=== PATIENT | female | born 1985 | race Two or more races ===

== ENCOUNTER 2022-08-28 11:45 | Outpatient (RCR) | payer OTHER, SELFPAY ==
[2022-08-28 13:20] LABS: Hematocrit 35.2 % (37.0-47.0); Hemoglobin 11.8 g/dL (12.0-15.0); Mean Corpuscular HGB Conc 33.5 g/dl (32-36); Mean Corpuscular Hemoglobin 29.6 pg (26-34); Mean Corpuscular Volume 88.4 fl (80-100); Mean Platelet Volume 9.9 fl (7.4-10.4); Platelet Count Result 302 k/mm3 (150-375); Red Blood Count 3.98 M/mm3 (4.2-5.4); Red Cell Distribution Width 17.9 % (11.5-14.5); White Blood Count 8.7 K/mm3 (4.5-10.0)
[2022-08-28 13:41] LABS: Glucose 1 Hour PP 50gm Dose 95 mg/dL
[2022-08-28 14:20] LABS: HIV 1/2 Ab P24 Ag Result Negative (Negative)
[2022-08-28 14:22] LABS: Hepatitis B Surface Antigen Negative (Negative); Rubella IgG Antibody 23.3 IU/ML
[2022-08-31 15:20] LABS: Rapid Plasma Reagin Non-Reactive (NonReactive)
== END 2022-11-26 23:59 | disposition home or self-care (01) ==
LOC: ANHLAB 11:45
PROVIDERS: Visit Provider Student in an Organized Health Care Education/Training Program
DX: Z11.4 Encounter for screening for human immunodeficiency virus [HIV] (principal); Z3A.00 Weeks of gestation of pregnancy not specified
CPT/HCPCS: 36415; 82947; 84702; 85027; 85660; 86592; 86644; 86703; 86747; 86762; 86787; 86850; 86900; 86901; 87086; 87340; G0432

== ENCOUNTER 2022-10-16 11:13 | Outpatient (RCR) | payer OTHER, SELFPAY ==
[2022-10-16 11:54] VITALS: BP 115/81; PULSE 75
== END 2023-01-14 23:59 | disposition home or self-care (01) ==
LOC: ANHOBOP 11:13
PROVIDERS: Visit Provider Student in an Organized Health Care Education/Training Program
DX: O36.8120 Decreased fetal movements, second trimester, not applicable or unspecified (principal); Z3A.19 19 weeks gestation of pregnancy
CPT/HCPCS: 59025

== ENCOUNTER 2022-12-24 12:11 | Outpatient (CLI) | payer OTHER, SELFPAY ==
[2022-12-24 15:01] LABS: Basophils Percent Auto 0.4 % (0.2-1.2); Eosinophils Absolute Auto 0.1 K/mm3 (0-0.3); Eosinophils Percent Auto 0.6 % (0-4.4); Hematocrit 31.9 % (37.0-47.0); Hemoglobin 10.4 g/dL (12.0-15.0); Immature Granulocyte Absolute 0.06 K/mm3 (0.00-0.031); Immature Granulocyte Percent A 0.7 % (0-0.5); Lymphocytes Percent Auto 20.7 % (18.3-44.2); Mean Corpuscular HGB Conc 32.6 g/dl (32-36); Mean Corpuscular Hemoglobin 31.2 pg (26-34); Mean Corpuscular Volume 95.8 fl (80-100); Mean Platelet Volume 10.5 fl (7.4-10.4); Monocytes Absolute Auto 0.8 K/mm3 (0.1-0.6); Monocytes Percent Auto 10.2 % (2.6-8.5); Neutrophils Absolute Auto 5.5 K/mm3 (1.3-6.7); Neutrophils Percent Auto 67.4 % (45.5-73.1); Platelet Count Result 262 k/mm3 (150-375); Red Blood Count 3.33 M/mm3 (4.2-5.4); Red Cell Distribution Width 13.8 % (11.5-14.5); White Blood Count 8.2 K/mm3 (4.5-10.0)
[2022-12-24 15:07] LABS: Glucose 1 Hour PP 50gm Dose 95 mg/dL
[2022-12-24 15:48] LABS: HIV 1/2 Ab P24 Ag Result Negative (Negative)
== END 2022-12-24 12:12 | disposition home or self-care (01) ==
PROVIDERS: Visit Provider Obstetrics & Gynecology
DX: Z34.90 Encounter for supervision of normal pregnancy, unspecified, unspecified trimester (principal); Z3A.00 Weeks of gestation of pregnancy not specified
CPT/HCPCS: 36415; 82947; 85025; 86703; G0432

== ENCOUNTER 2023-03-05 05:30 | Inpatient (IN) | payer OTHER, SELFPAY ==
--- NOTE | 2023-03-04 13:54 | PM.IMHP ---
H&P: HPI History of Present Illness Date/Time: 03/04/23 13:54 Chief Complaint: Intrauterine at term macrosomia h/o shoulder dystocia desires permanent sterilization Narrative: 37 yo female at 39w who present for primary section for suspected macrosomia in the setting of prior shoulder dystocia resulting in cerebral palsy. Review of Systems Cardiovascular: Cardiovascular: Denies chest pain, Denies leg edema, Denies palpitations, Denies dyspnea and Denies dyspnea on exertion Respiratory: Respiratory: Denies cough, Denies dyspnea and Denies dyspnea on exertion Gastrointestinal: Gastrointestinal: Denies abdominal pain, Denies constipation, Denies diarrhea, Denies nausea and Denies vomiting Genitourinary: Genitourinary: Denies hematuria, Denies urinary frequency, Denies dysuria, Denies pelvic pain, Denies urinary incontinence and Denies vaginal discharge Neurologic: Reports system reviewed and no additional complaints, except as documented Psychiatric: Psychiatric: Reports no additional psychiatric complaints Endocrine: Endocrine: Denies palpitations PMFSH Past Medical History Medical History HSV-2 infection Hypertension Vaginal discharge Family History Family History Father Diabetes mellitus Malignant neoplasm of prostate Sibling Diabetes mellitus Grandparent Malignant neoplasm of prostate Breast cancer Heart disease Other Hypertension Social History Social History Smoking status: Current some day smoker Tobacco type: cigarettes and e-cigarettes/vaping Alcohol intake: former Substance use: never Substance use type: marijuana Lack of Transportation: YES Lack of Food: Sometimes True Current Housing: I Have Housing Concerned About Future Housing: YES Difficulty Paying Gas/Electric Bills: YES Difficulty Paying for Meds: No Currently Unemployed: YES Education: Trade/Vocational Certificate Difficulty w/ Childcare or Family Care: No Living arrangements: with family Occupation/Education: occupation Gender identity (if verbalized by the patient): Female Sexual Orientation (if Verbalized by the Patient): Straight or Heterosexual Spiritual care concerns: No Meds Home Medications and Allergies Home Medications Medication Instructions Recorded Confirmed Type vits no.126-ferrous fum 1 tablet PO DAILY 11/03/22 03/02/23 History 28 mg iron-folic acid 800 mcg tablet (Classic ) aspirin 81 mg tablet,delayed 81 mg PO DAILY 12/01/22 03/02/23 History release (Adult Low Dose Aspirin) ferrous sulfate 325 mg (65 mg 325 mg PO DAILY 12/29/22 03/02/23 History iron) tablet metronidazole 500 mg tablet 500 mg PO Q12H #14 tabs 02/19/23 03/02/23 Rx Allergies Allergy/AdvReac Type Severity Reaction Status Date / Time No Known Allergies Allergy Verified 03/02/23 09:11 Exam Const: General: no acute distress Eyes: EOM: EOMs intact bilaterally Neck: Neck: supple Thyroid: thyroid normal Chest: Breast/axilla inspection: normal inspection of the breasts Breast/axilla palpation: normal palpation of the breasts, normal palpation of the axillae and no axillary lymphadenopathy Resp: Effort & Inspection: normal respiratory effort Auscultation: clear to auscultation bilaterally Cardio: Rate: regular rate Rhythm: regular rhythm GI: Inspection: non-distended and other (Gravid) GI Palp: Yes Soft to palpation, No Tenderness to palpation present (GI) and No Guarding due to palpation present (GI) Auscultation: normal bowel sounds : Speculum Exam - Vagina: No vaginal bleeding OB/external & speculum: external exam normal; No vaginal bleeding Skin: General skin exam: normal color and no rashes or lesions noted Neuro: Cognition (Neuro): normal cognition Sp
[2023-03-05] VITALS (60 sets, daily range): BP systolic 85–179; BP diastolic 56–117; PULSE 80–273; RESP 14–21; TEMP 36.8–37; O2SAT 96–100; BMI 39.2
--- NOTE | 2023-03-05 06:24 | LDADM ---
This patient, Lorrie Rawls, was admitted to Labor/Delivery/Recovery 120 on 03/05/23 at 05:30. Plans for labor, pain management and were discussed with patient. Patient/family oriented to hospital policies and general routines including ID bracelet, bed and alarms, visiting hours, pain management, procedures, bathroom and other care routines, personal items, smoking policy, room service/diet and guest tray routines, infant security routines, and visiting hours. Patient/Family are encouraged to report perceived risks to care and to ask questions if they do not understand what they are told or what they should do. See OBIX for further documentation.
[2023-03-05 06:34] LABS: Basophils Percent Auto 0.3 % (0.2-1.2); Eosinophils Absolute Auto 0.1 K/mm3 (0-0.3); Eosinophils Percent Auto 0.9 % (0-4.4); Hemoglobin 10.1 g/dL (12.0-15.0); Immature Granulocyte Absolute 0.07 K/mm3 (0.00-0.031); Immature Granulocyte Percent A 0.8 % (0-0.5); Lymphocytes Absolute Auto 2.36 K/mm3 (0.9-3.2); Lymphocytes Percent Auto 25.9 % (18.3-44.2); Mean Corpuscular HGB Conc 32.6 g/dl (32-36); Mean Corpuscular Hemoglobin 30.1 pg (26-34); Mean Corpuscular Volume 92.5 fl (80-100); Mean Platelet Volume 10.6 fl (7.4-10.4); Monocytes Absolute Auto 1.3 K/mm3 (0.1-0.6); Monocytes Percent Auto 13.9 % (2.6-8.5); Neutrophils Absolute Auto 5.3 K/mm3 (1.3-6.7); Neutrophils Percent Auto 58.2 % (45.5-73.1); Platelet Count Result 290 k/mm3 (150-375); Red Blood Count 3.35 M/mm3 (4.2-5.4); White Blood Count 9.1 K/mm3 (4.5-10.0)
[2023-03-05 06:44] LABS: Alanine Aminotransferase 16 U/L (6-35); Albumin Level 3.5 g/dL (3.5-5.1); Alkaline Phosphatase 128 U/L (38-126); Anion Gap 6 mmol/L (8-16); Aspartate Amino Transferase 23 U/L (14-36); Bilirubin,Total 0.6 mg/dL (0.2-1.3); Blood Urea Nitrogen 10 mg/dL (7-17); Calcium 9.1 mg/dL (8.4-10.2); Carbon Dioxide 21 mmol/L (22-30); Chloride 106 mmol/L (98-107); Estimated Glomerular Filt Rate > 60; Glucose 84 mg/dL (65-110); Potassium 3.7 mmol/L (3.4-5.0); Sodium 133 mmol/L (137-145)
[2023-03-05] MEDS: LACTATED RINGERS 1,000 ML 125 ML IV CONT ×4 (07:00→08:30)
--- NOTE | 2023-03-05 07:16 | WPDANESEPPF ---
Anes - Initial Pre Proc Eval Procedure: Operation Date: 03/05/23 07:30 Proposed Procedures p Repeat Section with Bilateral Tubal Ligation - Estevan Marin MD Date/Time: 03/05/23 07:16 Surgeon: Estevan Marin MD Pre Op Diagnosis: C/S Patient Data Age: 37 Gender: F Height: 1.83 m Weight: 131 kg Last Vital Signs Pulse 94 03/05/23 07:15 BP 125/79 03/05/23 07:15 Allergies Allergy/AdvReac Type Severity Reaction Status Date / Time No Known Allergies Allergy Verified 03/02/23 09:11 Home Medications Medication Instructions Recorded Confirmed Type vits no.126-ferrous fum 1 tablet PO DAILY 11/03/22 03/02/23 History 28 mg iron-folic acid 800 mcg tablet (Classic ) aspirin 81 mg tablet,delayed 81 mg PO DAILY 12/01/22 03/02/23 History release (Adult Low Dose Aspirin) ferrous sulfate 325 mg (65 mg 325 mg PO DAILY 12/29/22 03/02/23 History iron) tablet metronidazole 500 mg tablet 500 mg PO Q12H #14 tabs 02/19/23 03/02/23 Rx Laboratory Tests 03/05/23 06:24 WBC 9.1 K/mm3 (4.5-10.0) RBC 3.35 L M/mm3 (4.2-5.4) Hgb 10.1 L g/dL (12.0-15.0) Hct 31.0 L % (37.0-47.0) MCV 92.5 fl (80-100) MCH 30.1 pg (26-34) MCHC 32.6 g/dl (32-36) RDW 14.0 % (11.5-14.5) Plt Count 290 k/mm3 (150-375) MPV 10.6 H fl (7.4-10.4) Immature Gran % (Auto) 0.8 H % (0-0.5) Neut % (Auto) 58.2 % (45.5-73.1) Lymph % (Auto) 25.9 % (18.3-44.2) Grimes % (Auto) 13.9 H % (2.6-8.5) Eos % (Auto) 0.9 % (0-4.4) Baso % (Auto) 0.3 % (0.2-1.2) Lymph # (Auto) 2.36 K/mm3 (0.9-3.2) Grimes # (Auto) 1.3 H K/mm3 (0.1-0.6) Eos # (Auto) 0.1 K/mm3 (0-0.3) Baso # (Auto) 0.0 K/mm3 (0.0-0.1) Abs Immat Gran (auto) 0.07 H K/mm3 (0.00-0.031) Absolute Neuts (auto) 5.3 K/mm3 (1.3-6.7) Absolute Nucleated RBC 0.0 K/mm3 (0.0-0.012) Nucleated RBC % 0.0 % (0.0-0.2) Sodium 133 L mmol/L (137-145) Potassium 3.7 mmol/L (3.4-5.0) Chloride 106 mmol/L (98-107) Carbon Dioxide 21 L mmol/L (22-30) Anion Gap 6 L mmol/L (8-16) BUN 10 mg/dL (7-17) Creatinine 0.60 L mg/dL (0.7-1.0) Estim Creat Clear Calc Not Reportable Estimated GFR > 60 (59 - ) Glucose 84 mg/dL (65-110) Calcium 9.1 mg/dL (8.4-10.2) Total Bilirubin 0.6 mg/dL (0.2-1.3) AST 23 U/L (14-36) ALT 16 U/L (6-35) Alkaline Phosphatase 128 H U/L (38-126) Total Protein 7.0 g/dL (6.3-8.2) Albumin 3.5 g/dL (3.5-5.1) RPR Pending Patient hx anesthesia problems: none Family hx anesthesia problems: none Results Review: All pre-operative results and documents have been reviewed as part of the pre-operative evaluation. [facility] Past Medical History Medical History HSV-2 infection Hypertension Vaginal discharge Family History Family History Father Diabetes mellitus Malignant neoplasm of prostate Sibling Diabetes mellitus Grandparent Malignant neoplasm of prostate Breast cancer Heart disease Other Hypertension Social History Social History Smoking status: Never smoker Tobacco type: cigarettes and e-cigarettes/vaping Alcohol intake: former Substance use: never Substance use type: marijuana Do You Feel Safe in your Home?: Yes Lack of Transportation: No Lack of Food: Never True Current Housing: I Have Housing Concerned About Future Housing: No Difficulty Paying Gas/Electric Bills: No Difficulty Paying for Meds: No Currently Unemployed: No Education: Trade/Vocational Certificate Difficulty w/ Childcare or Family Care: No Living arrangements: with family Occupation/Education: occupation Gender identi
--- NOTE | 2023-03-05 07:20 | WPDHPUPDATE1 ---
History and Physical Update Update Date/Time: 03/05/23 07:20 History and Physical has been reviewed, including an updated exam of the patient. There are NO changes in the patient's condition. Risks, benefits, and alternatives have been discussed and questions answered. Patient agrees to proceed with procedure.
[2023-03-05] MEDS: ceFAZolin 3 GM/D5W 100 ML 100 ML IVPB (07:22)
[2023-03-05] MEDS: KETOROLAC 30 MG/ML VIAL (*BKC) IV PUSH ×2 (08:21→15:45)
--- NOTE | 2023-03-05 08:28 | W.PM.OBCSD ---
OB - Delivery Note Procedure Delivery date: 03/05/23 Pre-op diagnosis: Chronic Hypertension Post-op Diagnosis: Same Induction method: None Prior to decision for section, ACOG/SMFM labor guidelines were considered and discussed with the patient and staff. Decision made to proceed with the section.: Yes Procedure Performed: Primary Primary branch: low cervical, transverse Surgeon: Estevan Marin MD Anesthesia type: Spinal Description of Procedure/Findings: The patient was taken to the operating room where epidural anesthesia was found to be adequate. She was then prepped and draped in the usual sterile fashion in the dorsal supine position with a leftward tilt. A Pfannenstiel skin incision was then made with the scalpel and carried through to the underlying layer of fascia. The fascia was then incised in the midline and the incision extended laterally with the Guerrier scissors. The superior aspect of the fascia was then grasped with the Latoya clamps, elevated, and the underlying rectus muscles dissected off bluntly and sharply. Attention was then turned to the inferior aspect of this incision which, in a similar fashion, was grasped, tented up with the Latoya clamps, and the rectus muscles dissected off both bluntly and sharply. The rectus muscles were then in the midline, and the peritoneum identified, tented up, and entered sharply with the Metzenbaum scissors. The peritoneal incision was then extended superiorly and inferiorly with good visualization of the bladder. An diana ring retractor was placed in the abdomen for better visualization. the lower uterine segment incised in a low, transverse fashion with the scalpel. The uterine incision was then extended laterally bluntly. the head was noted at the hysterotomy. 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 Abdominal incision was restricted by a narrow pelvis. Fundal pressure failed to deliver the head through the hysterotomy. At this time, forceps were called for and placed on the head bilaterally. The head was delivered through the hysterotomy with minimal traction. The forceps were disarticulated. The remainder of the infant was delivered atraumatically. The was noted to have good grimace and cried with minimal stimulation upon delivery. The cord was clamped and cut. The was handed off to the waiting pediatricians (staff). Cord gasses were sent. The placenta was then removed manually, the uterus exteriorized, and cleared of all clots and debris. The uterine incision was repaired with 0 monocryl in a running fashion. A second imbricating layer of 0- monocryl was placed to ensure excellent hemostasis and strength. Both fallopian tubes were identified and followed out to the fimbrae bilaterally. The left fallopian tube was grasped with Babcocks and elevated to identify an avascular space in the mesosalpinx. A ligasure device was used to ligate the fallopian tube along the inferior mesosalpinx. The fallopian tube was transected at the uterine corpus and removed. The same procedure was repeated for the right fallopian tube. The uterus was returned to the abdomen. The uterus was then reinspected to ensure hemostasis as were all subfascial tissues. The peritoneum was re-approximated with vicryl in a running fashion. The fascia was reapproximated with 0 vicryl in a running fashion. The subcutaneous layer was copiously irrigated to clear any clots or debris. The subcutaneous tissue was reapproximated using 3-0 Vicryl in a running fashion. The skin was closed with 4-0 vicryl. The patient tolerated the procedure well. Sponge, lap and needle counts were correct times three. The patient was taken to the recovery room in stable condition. Specimen: Yes (placenta) Estimated Blood Loss: 180 Drains: No Packing: No Pathology: Yes (placenta) Complications: No immediate complications Condition: Stable Disposition: F
--- NOTE | 2023-03-05 09:50 | PC.NURSE ---
FHT obtained in OR after spinal placement and prior to prepping pt in sterile fashion. FHT 145 at 0777
[2023-03-05] MEDS: OXYTOCIN 30 UNITS/NS 500 ML 30 UNITS/500 ML BAG 125 UNITS IV CONT (10:59)
[2023-03-05 14:41] LABS: Rapid Plasma Reagin Non-Reactive (NonReactive)
[2023-03-05] MEDS: DEXTROSE 5%/0.45% SOD CHL 1,000 ML 125 ML IV CONT (16:04)
[2023-03-05] MEDS: POLYSACCHARIDE IRON COMPLEX 150 MG CAPSULE PO (17:12)
[2023-03-05] MEDS: DOCUSATE SODIUM 100 MG CAPSULE PO (17:13)
[2023-03-06] MEDS: IBUPROFEN 600 MG TABLET PO ×4 (01:20→23:42)
[2023-03-06] MEDS: HYDROcodone/acetaminophen (*CRX) 5-325 MG TABLET 1 TAB PO ×3 (01:20→13:28)
[2023-03-06 05:30] VITALS: BP 108/68; PULSE 94; RESP 16; TEMP 36.7
[2023-03-06 05:53] LABS: Basophils Percent Auto 0.3 % (0.2-1.2); Eosinophils Absolute Auto 0.1 K/mm3 (0-0.3); Eosinophils Percent Auto 0.4 % (0-4.4); Hematocrit 26.6 % (37.0-47.0); Hemoglobin 8.8 g/dL (12.0-15.0); Immature Granulocyte Absolute 0.08 K/mm3 (0.00-0.031); Immature Granulocyte Percent A 0.7 % (0-0.5); Lymphocytes Absolute Auto 1.66 K/mm3 (0.9-3.2); Lymphocytes Percent Auto 14.2 % (18.3-44.2); Mean Corpuscular HGB Conc 33.1 g/dl (32-36); Mean Corpuscular Hemoglobin 30.1 pg (26-34); Mean Corpuscular Volume 91.1 fl (80-100); Mean Platelet Volume 10.4 fl (7.4-10.4); Monocytes Absolute Auto 1.5 K/mm3 (0.1-0.6); Monocytes Percent Auto 12.5 % (2.6-8.5); Neutrophils Absolute Auto 8.4 K/mm3 (1.3-6.7); Neutrophils Percent Auto 71.9 % (45.5-73.1); Platelet Count Result 258 k/mm3 (150-375); Red Blood Count 2.92 M/mm3 (4.2-5.4); Red Cell Distribution Width 14.3 % (11.5-14.5); White Blood Count 11.7 K/mm3 (4.5-10.0)
[2023-03-06 07:40] VITALS: BP 114/75; PULSE 90; RESP 16; TEMP 36.7; O2SAT 97
[2023-03-06] MEDS: FERROUS SULFATE 325 MG TABLET DR PO (07:46)
[2023-03-06] MEDS: MULTIVIT/MIN/PREN/FOL AC/IRON TABLET 1 TAB PO (07:46)
[2023-03-06] MEDS: DOCUSATE SODIUM 100 MG CAPSULE PO ×2 (07:48→16:57)
--- NOTE | 2023-03-06 08:54 | PM.OBPNVD ---
OB - PN: Subj Subjective Date/time seen: 03/06/23 08:54 Patient comments: no complaints and pain well controlled baby status: doing well OB - PN: Obj Data Labs 03/06/23 05:29 03/05/23 06:24 Labs: Laboratory Results - last 24 hr 03/05/23 03/06/23 06:24 05:29 WBC 11.7 H RBC 2.92 L Hgb 8.8 L Hct 26.6 L MCV 91.1 MCH 30.1 MCHC 33.1 RDW 14.3 Plt Count 258 MPV 10.4 Immature Gran % (Auto) 0.7 H Neut % (Auto) 71.9 Lymph % (Auto) 14.2 L Brule % (Auto) 12.5 H Eos % (Auto) 0.4 Baso % (Auto) 0.3 Lymph # (Auto) 1.66 Brule # (Auto) 1.5 H Eos # (Auto) 0.1 Baso # (Auto) 0.0 Abs Immat Gran (auto) 0.08 H Absolute Neuts (auto) 8.4 H Absolute Nucleated RBC 0.0 Nucleated RBC % 0.0 RPR Non-reactive OB - PN A/P Plan day: 1 Plan: routine care Comments: Doing well. Continue care. Restarted iron for anemia. RN to change dressing after shower per Dr. Marin plan. Time Spent With Patient Time: Total time spent is greater than 50% in coordination of care (as documented) at patient's floor/unit and/or counseling patient: Exam Narrative: bandage stained but not past mei from yesterday : Bimanual exam- vagina & uterus: other (Uterus firm, nt @U)
[2023-03-06 13:30] VITALS: BP 122/74; PULSE 104
--- NOTE | 2023-03-06 16:09 | WPDANLDPN2 ---
Anes-Prog Note L&D Date/Time: 03/06/23 16:09 Comfortable throughout: section Neuraxial method: spinal Epidural/Spinal procedure site: clean & non-tender Neuro status: Neuro function grossly intact. Cardiovascular status: normal Respiratory status: normal Airway patency: baseline Mental status: baseline Post-Op hydration status: normal Vital Signs: Last Vital Signs Temp 98.1 F 03/06/23 07:40 Pulse 104 H 03/06/23 13:30 Resp 16 03/06/23 07:40 BP 122/74 03/06/23 13:30 Pulse Ox 97 03/06/23 07:40 O2 Del Method Room Air 03/05/23 10:30 Pain score (VAS): 0 I/O: Intake & Output 03/06/23 03/06/23 03/06/23 07:59 15:59 23:59 Intake Total 1200 500 Output Total 1400 650 Balance -200 -150 Post-procedural complaints: pruritis mild, no treatment Patient feedback: Patient satisfied with anesthetic care.
--- NOTE | 2023-03-06 16:12 | WPDANLDNPN2 ---
Anes-Prog Note L&D-Neuraxial Date/Time: 03/06/23 16:12 Neuraxial medications: intrathecal PF morphine Opiod-related complaints: pruritis mild, no treatment Patient feedback: Patient satisfied with post-operative pain management.
[2023-03-06] MEDS: HYDROcodone/acetaminophen (*CRX) 10-325 MG TABLET 1 TAB PO ×2 (16:57→23:42)
[2023-03-06 19:30] VITALS: BP 127/84; PULSE 94; RESP 16; TEMP 36.7
[2023-03-07] MEDS: HYDROcodone/acetaminophen (*CRX) 10-325 MG TABLET 1 TAB PO (05:11)
[2023-03-07] MEDS: IBUPROFEN 600 MG TABLET PO ×3 (05:11→23:48)
[2023-03-07 09:00] VITALS: BP 121/84; PULSE 93; RESP 14; TEMP 36.5; O2SAT 100
[2023-03-07] MEDS: FERROUS SULFATE 325 MG TABLET DR PO (09:00)
[2023-03-07] MEDS: MULTIVIT/MIN/PREN/FOL AC/IRON TABLET 1 TAB PO (09:00)
[2023-03-07] MEDS: DOCUSATE SODIUM 100 MG CAPSULE PO ×2 (09:00→16:30)
[2023-03-07] MEDS: HYDROcodone/acetaminophen (*CRX) 5-325 MG TABLET 1 TAB PO ×3 (09:15→23:47)
--- NOTE | 2023-03-07 12:01 | PM.OBPNVD ---
OB - PN: Subj Subjective Date/time seen: 03/07/23 12:01 Patient comments: no complaints and pain well controlled OB - PN: Obj Data Labs 03/06/23 05:29 03/05/23 06:24 OB - PN A/P Plan day: 2 Plan: routine care Time Spent With Patient Time: Total time spent is greater than 50% in coordination of care (as documented) at patient's floor/unit and/or counseling patient: Exam Narrative: bandage c/d/i : Bimanual exam- vagina & uterus: other (Uterus firm, nt @U)
[2023-03-07 16:30] VITALS: BP 111/70; PULSE 95; RESP 18; TEMP 36.7; O2SAT 100
[2023-03-07 20:10] VITALS: BP 126/78; PULSE 96; RESP 20; TEMP 36.7
[2023-03-08 08:00] VITALS: BP 116/71; PULSE 96; RESP 16; TEMP 36.6; O2SAT 100
[2023-03-08] MEDS: FERROUS SULFATE 325 MG TABLET DR PO (08:29)
[2023-03-08] MEDS: SIMETHICONE 80 MG TAB.CHEW PO (08:29)
[2023-03-08] MEDS: MULTIVIT/MIN/PREN/FOL AC/IRON TABLET 1 TAB PO (08:29)
[2023-03-08] MEDS: DOCUSATE SODIUM 100 MG CAPSULE PO (08:29)
[2023-03-08] MEDS: HYDROcodone/acetaminophen (*CRX) 5-325 MG TABLET 1 TAB PO (08:30)
[2023-03-08] MEDS: IBUPROFEN 600 MG TABLET PO (08:31)
--- NOTE | 2023-03-08 14:01 | PM.OBPNVD ---
OB - PN: Subj Subjective Date/time seen: 03/08/23 14:01 Interval history: Pain well controlled with Motrin and Jackhorn 5 mg q 6 hours. 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 Those Rx cancelled and new sent to [facility] in [place]. Milk coming in and breasts firm throughout. Reviewed care. Patient comments: no complaints and pain well controlled baby status: doing well OB - PN: Obj Data Labs 03/06/23 05:29 03/05/23 06:24 OB - PN A/P Plan day: 3 Plan: routine care and discharge home Time Spent With Patient Time: Total time spent is greater than 50% in coordination of care (as documented) at patient's floor/unit and/or counseling patient: Exam Narrative: bandage dry and intact fundus firm nt
[2023-03-10 11:55] VITALS: BP 142/89; PULSE 81; RESP 18; TEMP 36.7; O2SAT 98
--- NOTE | 2023-03-11 14:34 | PM.OBDSVD ---
DS: Admitting Diagnosis Discharge Date 03/08/23 Admitting Diagnosis intrauterine at term chronic hypertension history of shoulder dystocia DS: Discharge Diagnosis Discharge Diagnosis (1) delivery delivered: Code(s): O82 - Encounter for delivery without indication Status: Acute OB - DS: Summary Hospital Course Hospital Course: 37 yo who presented for primary due to history of shoulder dystocia. was complicated by chronic hypertension. Pt also underwent bilateral salpingectomy at the time of for permanent sterilization. Her course was uncomplicated. OB Procedures : None OB Procedures Intrapartum: low cervical, transverse and Tubal ligation OB Procedures: : None Peripartum Data Delivery Method: Section Laceration Description: None Procedures: Procedures Operation Date: 03/05/23 07:30 Actual Procedure Side Surgeon p Primary Section with Bilateral Tubal Ligation Bilateral Estevan Marin MD complications: none Status at Discharge Functional status at discharge: independent ambulation Overall status at discharge: patient is progressing back to baseline Time Spent with Patient Time attestation: Total time spent providing and/or coordinating discharge services: Time spent: Less than 30 minutes Exam Const: General: comfortable and no acute distress Resp: Effort & Inspection: normal respiratory effort Auscultation: clear to auscultation bilaterally Cardio: Rate: regular rate GI: Inspection: non-distended GI Palp: Yes Soft to palpation, No Firmness to palpation present (GI), Yes Tenderness to palpation present (GI) (mild tenderness over incision ) and No Guarding due to palpation present (GI) Auscultation: normal bowel sounds Psych: Appearance: grossly normal Mental Status: mental status grossly normal DS: Data Data Completed and Pending Completed studies during hospitalization: Pending at discharge 03/05/23 09:00 Surgical [PTH] Routine Discharge Plan Discharge Attending physician on discharge: Estevan Marin Consulting providers: Linn Aleman; Saima Stephenson; Elder Christy Discharging Clinician: Saima Stephenson Anticipated Discharge Date/Time: 03/08/23 13:47 Patient Disposition: Home, Self-Care Activity: as tolerated and pelvic rest Diet: regular Wound Care Instructions: keep dressing dry and other - see discharge instructions Discharge Instructions: Education: Mom and Baby Guide Given to: Mother Follow-Up: Call your delivering provider's office for an appointment to be seen in: 1 Week Mom and baby should come to the [facility] for the follow-up appointment. Appointment Date/Time: Friday, March 10, 2023 at 11:00 am What to expect at your follow-up visit: Physical Assessment Call [phone] if you are unable to keep your appointment time. BREAST CARE: * Wear a snug supportive bra. * For engorgement discomfort: Breast Feeding: * Apply warm moist washcloths * Express milk as needed to relieve engorgement * Wear loose clothing Bottle Feeding: * May apply ice packs * For sore nipples: * Identify correct latch-on * Apply warm moist washcloths before and after nursing * Air dry nipples after nursing * May apply Lansinoh cream to nipples ABDOMINAL INCISION: (if applicable) * Allow incision to air dry * Do NOT use lotions for powders on your incision * When showering, allow soap and water to run over the incision, but do not wash incision PERINEAL CARE: * Until bleeding stops, use your larry bottle after urinating * Change your pad frequently throughout the day * You may take sitz baths several times a day (fill your bathtub with warm water and soak for 20 minutes.) Do NOT bathe in t
== END 2023-03-08 15:35 | disposition home or self-care (01) | DRG 539 ==
LOC: ANHLDR 05:35 → ANHOB2 11:18
PROVIDERS: Admitting Provider Student in an Organized Health Care Education/Training Program; Visit Provider Student in an Organized Health Care Education/Training Program
PROC: 10D00Z1 Extraction of Products of Conception, Low, Open Approach (ICD-10-PCS; CPT 59514; principal; 2023-03-05 07:30)
DX: O10.92 Unspecified pre-existing hypertension complicating childbirth (principal); Z37.0 Single live birth; Z3A.39 39 weeks gestation of pregnancy; O99.824 Streptococcus B carrier state complicating childbirth; O36.63X0 Maternal care for excessive fetal growth, third trimester, not applicable or unspecified; O99.214 Obesity complicating childbirth; E66.9 Obesity, unspecified; Z30.2 Encounter for sterilization
CPT/HCPCS: 36415; 80053; 85025; 86592; 86850; 86900; 86901; 88302; 88307; A9270; J0690; J1885; J2274; J2371; J2405; J2590; J7120

== ENCOUNTER 2023-06-29 14:07 | Outpatient (CLI) | payer OTHER, SELFPAY ==
[2023-07-02 13:54] LABS: DHEA-Sulfate 104 mcg/dL (19-237); Sex Hormone Binding Globulin 35 nmol/L (17-124)
[2023-07-03 12:38] LABS: Testosterone Free 5.6 pg/mL (0.1-6.4); Testosterone Total 36 ng/dL (2-45)
== END 2023-06-29 14:08 | disposition home or self-care (01) ==
LOC: ANHLAB 14:08
PROVIDERS: Visit Provider Student in an Organized Health Care Education/Training Program
DX: E25.9 Adrenogenital disorder, unspecified (principal)
CPT/HCPCS: 36415; 82627; 83498; 84270; 84402; 84403

== ENCOUNTER 2023-07-24 22:51 | Emergency (ER) | payer OTHER, SELFPAY ==
[2023-07-24 22:54] VITALS: BP 160/103; PULSE 104; RESP 20; TEMP 36.4; O2SAT 100
--- NOTE | 2023-07-25 00:49 | ED.SKABFB ---
HPI - Skin/Abscess/Foreign Bdy General Chief complaint: Skin/Abscess/Foreign Body Stated complaint: allergic reaction/rash/hives on face x3 weeks Time Seen by Provider: 07/25/23 00:39 History of Present Illness HPI narrative: 37-year-old female presents to the emergency department for a rash to her face for approximately 1 month. Patient states she used a new face wash 1 time and she broke out in a rash around her mouth and chin. States she was seeing [facility] if you weeks ago and was prescribed p.o. prednisone metronidazole. States she took these medications and had resolution of the rash, however a while later the rash returned. She states she went back to [place] get another prescription for prednisone but did not have any relief. States she now has the rash to the upper left cheeks around her eyes which is new today. 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 She has never had a rash like this before. She denies other new no moisturizers or creams, lotions, makeup other than the face wash she stopped using after the 1st use. Denies any new medications. Denies lip or tongue swelling, difficulty breathing or fever. 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 Related Data Allergies Allergy/AdvReac Type Severity Reaction Status Date / Time No Known Allergies Allergy Verified 07/24/23 22:58 Review of Systems Review of Systems: CONSTITUTIONAL: Denies fever, chills, or sweats. EYES: Denies visual changes, redness, or discharge. ENT: Denies rhinorrhea, congestion, sore throat, or otalgia. CARDIOVASCULAR: Denies chest pain, palpitations, or edema. RESPIRATORY: Denies cough or dyspnea. GASTROINTESTINAL: Denies abdominal pain, nausea, vomiting, or diarrhea. GENITOURINARY: Denies dysuria or hematuria. SKIN: See HPI MUSCULOSKELETAL: Denies back pain, joint pain, or myalgia. NEUROLOGIC: Denies headache, numbness, or weakness. PSYCHIATRIC: Denies anxiety or depression. [facility] Past Medical History Medical History Adrenogenital disorder, unspecified HSV-2 infection Hypertension Vaginal discharge Surgical History Surgical History History of delivery History of tubal ligation Family History Family History Father Diabetes mellitus Malignant neoplasm of prostate Sibling Diabetes mellitus Grandparent Malignant neoplasm of prostate Breast cancer Heart disease Other Hypertension Social History Social History Smoking status: Current some day smoker Tobacco type: e-cigarettes/vaping Alcohol intake: current Alcohol use details: occasional Substance use: current Substance use type: marijuana Do You Feel Safe in your Home?: Yes Lack of Transportation: No Lack of Food: Never True Current Housing: I Have Housing Concerned About Future Housing: No Difficulty Paying Gas/Electric Bills: No Difficulty Paying for Meds: No Currently Unemployed: No Education: Trade/Vocational Certificate Difficulty w/ Childcare or Family Care: No Living arrangements: with family Occupation/Education: occupation Gender identity (if verbalized by the patient): Female Sexual Orientation (if Verbalized by the Patient): Straight or Heterosexual Spiritual care concerns: No Exam Narrative: GENERAL: Well-appearing, well-nourished, and in no acute distress. HEAD: Normocephalic, atraumatic. EYES: PERRLA and EOMI. ENT: Nares clear, no rhinorrhea or epistaxis. Mucous membranes moist. NECK: Supple. CHEST: Clear to auscultation. No respiratory distress. HEART: Regular rate and rhythm. No murmur heard. Normal peripheral pulses. EXTREMITIES: Normal range of motion. No edema. SKIN: Grouped inflammatory pustules and papules on an e
== END 2023-07-25 01:03 | disposition home or self-care (01) ==
PROVIDERS: Emergency Provider Physician Assistant
DX: L71.0 Perioral dermatitis (principal); I10 Essential (primary) hypertension; E25.9 Adrenogenital disorder, unspecified; F17.290 Nicotine dependence, other tobacco product, uncomplicated
CPT/HCPCS: 99283

== ENCOUNTER 2024-02-28 12:08 | Emergency (ER) | payer OTHER, SELFPAY ==
--- NOTE | ~2024-02-28 | CT_ITS ---
EXAMINATION: CT brain wo con DATE: 02/28/2024 14:27 INDICATION: Frontal headache. Hypertension. TECHNIQUE: Computed tomography (CT) of the head was performed without intravenous contrast. Sagittal and coronal reconstructions were performed. The mA was adjusted according to patient size. Iterative reconstruction technique was employed. The dose-length product was 681.00 mGy-cm. COMPARISON: None FINDINGS: No acute intracranial hemorrhage, acute infarction or abnormal extra axial fluid collection. Ventricl es are normal and symmetric. No mass/mass effect. The orbits, paranasal sinuses and mastoid air cells are normal. IMPRESSION: 1. No acute intracranial process. Reviewed, dictated and finalized at location A. A/C TECH
[2024-02-28 12:20] VITALS: BP 146/94; PULSE 102; RESP 16; TEMP 36.4; O2SAT 99
[2024-02-28 13:48] VITALS: RESP 20; O2SAT 100
[2024-02-28 13:51] VITALS: BP 123/94; PULSE 95; RESP 20; O2SAT 100
--- NOTE | 2024-02-28 14:13 | ECG_ITS ---
Test Date: 2024-02-28 14:36:48 Measurements Intervals [place] Rate: 82 P: 55 IA: 149 QRS: 19 QRSD: 90 T: 11 QT: 376 QTc: 440 Interpretive Statements SINUS RHYTHM No previous ECG available for comparison Electronically Signed On 02-28-2024 21:21:11 [employer] CABINET[employer] by Ekaterina Matute M.D.
--- NOTE | 2024-02-28 14:14 | ED_ITS ---
HPI - Recheck/Abnormal Lab/Rx General Chief Complaint: Recheck/Abnormal Lab/Rx Stated Complaint: HTN, H/A Time Seen by Provider: 02/28/24 13:54 History of Present Illness HPI narrative: Pt presents with intermittent MONREAL for several days better today after taking excedrin yesterday. Pt went to PCP and BP elevated so sent to ER for eval. Pt denies CP or SOB. Related Data Allergies Allergy/AdvReac Type Severity Reaction Status Date / Time No Known Allergies Allergy Verified 02/28/24 12:10 Review of Systems 2 Review of Systems: All systems reviewed & are unremarkable except as noted in HPI and below PMFSH Past Medical History Medical History Adrenogenital disorder, unspecified HSV-2 infection Hypertension Vaginal discharge Surgical History Surgical History History of delivery History of tubal ligation Family History Family History Father Diabetes mellitus Malignant neoplasm of prostate Sibling Diabetes mellitus Grandparent Malignant neoplasm of prostate Breast cancer Heart disease Other Hypertension Social History Social History Smoking status: Current some day smoker Tobacco type: e-cigarettes/vaping Alcohol intake: current Alcohol use details: occasional Substance use: current Substance use type: marijuana Do You Feel Safe in your Home?: Yes Lack of Transportation: No Lack of Food: Never True Current Housing: I Have Housing Concerned About Future Housing: No Difficulty Paying Gas/Electric Bills: No Difficulty Paying for Meds: No Currently Unemployed: No Education: Trade/Vocational Certificate Difficulty w/ Childcare or Family Care: No Living arrangements: with family Occupation/Education: occupation Gender identity (if verbalized by the patient): Female Sexual Orientation (if Verbalized by the Patient): Straight or Heterosexual Spiritual care concerns: No Exam 2 Const: General: healthy appearing and no acute distress Nutritional Appearance: obese Orientation/consciousness: patient oriented x3 L imitations: no limitations HENMT: Head: normal to inspection Eyes: Conjunctivae: conjunctivae normal EOM: EOMs intact bilaterally Resp: Effort & Inspection: normal respiratory effort Auscultation: clear to auscultation bilaterally Cardio: Rate: regular rate Rhythm: regular rhythm GI: GI Palp: Yes Soft to palpation Skin: General skin exam: normal color Wounds: no wounds Neuro: General: patient oriented x3, moves all extremities, no meningeal signs, no focal motor deficits and CN's II-XI intact bilaterally Cranial nerves: Yes Nystagmus not present Speech: normal speech Extrem: General: normal to inspection and no clubbing, cyanosis or edema Psych: Mental Status: mental status grossly normal Affect: normal affect Attitude: cooperative Course Vital Signs Vital signs: Vital Signs Temperature 97.6 F 02/28/24 12:20 Pulse Rate 102 H 02/28/24 12:20 Respiratory Rate 16 02/28/24 12:20 Blood Pressure 146/94 H 02/28/24 12:20 Pulse Oximetry 99 02/28/24 12:20 Oxygen Delivery Room Air 02/28/24 12:20 Temperature 97.6 F 02/28/24 12:20 Pulse Rate 98 02/28/24 15:21 Respiratory Rate 18 02/28/24 15:21 Blood Pressure 129/94 H 02/28/24 15:21 Pulse Oximetry 96 02/28/24 15:21 Oxygen Delivery Room Air 02/28/24 12:20 MDM - Recheck/Abnormal Lab/Rx MDM Narrative Medical decision making narrative: Pt here with MONREAL and HTN. BP 128/[address] head and ekg and labs to rule out pathology. labs ekg and CT neg. home to follow up with PCP for BP management. Lab Data 02/28/24 14:43 02/28/24 14:43 Labs: Lab Results 02/28/24 Range/Units 14:43 WBC 7.3 (4.5-10.0) K/mm3 RBC 4.10 L (4.2-5.4) M/mm3 Hgb 9.6 L (12.0-15.0) g/dL Hct 31.7 L (37.0-47.0) % MCV 77.3 L (80-100) fl MCH 23.4 L (26-34) pg MCHC 30.3 L (32-36) g/dl RDW 18.6 H (11.5-14.5) % Plt Count 454 H D (150-375) k/mm3 MPV 9.9 (7.4-10.4) fl Immature Gran % (Auto) 0.3 (0-0.5) % Neut % (Auto) 52.4 (45.5-73.1) % Lymph % (Auto) 35.4 (18.3-44.2) % Cottle % (Auto) 10.2 H (2.6-8.5) % Eos % (Auto) 1.0 (0-4.4) % Baso % (Auto) 0.7 (0.2-1.2) % Lymph # (Auto) 2.57 (0.9-3.2) K/mm3 Cottle # (Auto) 0.7 H (0.1-0.6) K/mm3 Eos # (Auto) 0.1 (0-0.3) K/mm3 Baso # (Auto) 0.1 (0.0-0.1) K/mm3 Abs Immat Gran (auto) 0.02 (0.00-0.031) K/mm3 Absolute Neuts (auto) 3.8 (1.3-6.7) K/mm3 Absolute Nucleated RBC 0.000 (0.0-0.012) K/mm3 Nucleated RBC % 0.0 (0.0-0.2) % Atypical Lymphocytes Present Platelet Estimate Adequate (Adequate) Hypochromasia 1+ Ovalocytes 1+ Schistocytes None seen Sodium 138 (137-145) mmol/L Potassium 3.9 (3.4-5.0) mmol/L Chloride 108 H (98-107) mmol/L Carbon Dioxide 26 (22-30) mmol/L Anion Gap 4 (4-12) mmol/L BUN 12 (7-17) mg/dL Creatinine 0.90 (0.7-1.0) mg/dL Estim Creat Clear Calc 118 ml/min Estimated GFR > 60 (59 - ) Glucose 92 (65-110) mg/dL Calcium 9.1 (8.4-10.2) mg/dL Total Bilirubin 0.6 (0.2-1.3) mg/dL AST 36 (14-36) U/L ALT 28 (6-35) U/L Alkaline Phosphatase 71 (38-126) U/L Troponin I < 0.012 (0.000-0.034) ng/mL Total Protein 8.0 (6.3-8.2) g/dL Albumin 4.3 (3.5-5.1) g/dL Discharge Plan Discharge Clinical Impression: Hypertension Patient Disposition: Home, Self-Care Condition: Stable Instructions: Antibiotic Form, Hypertension (ED) Patient Language: German Prescriptions: No Action erythromycin with ethanol 2 % gel 1 applic topical BID Qty: 30 0RF Follow-up/Referrals: Rob Umana MD [Primary Care Provider] -
[2024-02-28 14:49] LABS: Basophils Absolute Auto 0.1 K/mm3 (0.0-0.1); Basophils Percent Auto 0.7 % (0.2-1.2); Eosinophils Absolute Auto 0.1 K/mm3 (0-0.3); Hematocrit 31.7 % (37.0-47.0); Hemoglobin 9.6 g/dL (12.0-15.0); Immature Granulocyte Absolute 0.02 K/mm3 (0.00-0.031); Immature Granulocyte Percent A 0.3 % (0-0.5); Lymphocytes Absolute Auto 2.57 K/mm3 (0.9-3.2); Lymphocytes Percent Auto 35.4 % (18.3-44.2); Mean Corpuscular HGB Conc 30.3 g/dl (32-36); Mean Corpuscular Hemoglobin 23.4 pg (26-34); Mean Corpuscular Volume 77.3 fl (80-100); Mean Platelet Volume 9.9 fl (7.4-10.4); Monocytes Absolute Auto 0.7 K/mm3 (0.1-0.6); Monocytes Percent Auto 10.2 % (2.6-8.5); Neutrophils Absolute Auto 3.8 K/mm3 (1.3-6.7); Neutrophils Percent Auto 52.4 % (45.5-73.1); Platelet Count Result 454 k/mm3 (150-375); Red Cell Distribution Width 18.6 % (11.5-14.5); White Blood Count 7.3 K/mm3 (4.5-10.0)
[2024-02-28 15:01] LABS: Alanine Aminotransferase 28 U/L (6-35); Albumin Level 4.3 g/dL (3.5-5.1); Alkaline Phosphatase 71 U/L (38-126); Anion Gap 4 mmol/L (4-12); Aspartate Amino Transferase 36 U/L (14-36); Bilirubin,Total 0.6 mg/dL (0.2-1.3); Blood Urea Nitrogen 12 mg/dL (7-17); Calcium 9.1 mg/dL (8.4-10.2); Carbon Dioxide 26 mmol/L (22-30); Chloride 108 mmol/L (98-107); Estimated CRCL calculation 118 ml/min; Estimated Glomerular Filt Rate > 60; Glucose 92 mg/dL (65-110); Potassium 3.9 mmol/L (3.4-5.0); Sodium 138 mmol/L (137-145)
[2024-02-28 15:02] LABS: Hypochromasia 1+; Ovalocytes 1+; Platelet Estimate Adequate (Adequate); Schistocytes None Seen
[2024-02-28 15:03] LABS: Atypical Lymphocytes Present
[2024-02-28 15:12] LABS: Troponin I < 0.012 ng/mL (0.000-0.034)
[2024-02-28 15:21] VITALS: BP 129/94; PULSE 98; RESP 18; O2SAT 96
== END 2024-02-28 15:27 | disposition home or self-care (01) ==
PROVIDERS: Emergency Provider Emergency Medicine; PCP Emergency Medicine
DX: I10 Essential (primary) hypertension (principal); E25.9 Adrenogenital disorder, unspecified; F17.290 Nicotine dependence, other tobacco product, uncomplicated
CPT/HCPCS: 36415; 70450; 80053; 84484; 85025; 93005; 99284